=== PATIENT | female | born 1995 ===

== ENCOUNTER 2019-10-09 13:17 | Outpatient (CLI) | payer BC ==
--- NOTE | 2019-10-09 15:58 | ULT ---
OB ULTRASOUND: HISTORY: Size and dates. TECHNIQUE/FINDINGS: Real-time imaging of the pelvis shows a single viable intrauterine in a cephalic presentati on. Cervical canal length is 4.6 cm. The placenta is anterior in location without evidence of previa. Amniotic fluid is adequate for this stage of . Review of anatomy shows no abnormalities detected. Head, cerebellum, ventricles, four chamber h eart, stomach, kidneys, bladder, spine, upper and lower extremities and three vessel cord were all id entified. heart rate is 138 beats per minute. measurements are as follows: BPD: 4.3 cm (19 weeks 1 day) Head circumference: 15.9 cm (18 weeks 6 days) Abdominal circumference: 13.2 cm (18 weeks 5 days) Femur length: 3.2 cm (20 weeks 0 days) IMPRESSION: 1. Single viable intrauterine in a cephalic presentation. Overall measurements correspondin g to a gestational age of 19 weeks 2 days. Estimated date of delivery 03/02/2020. 2. Placenta which is anterior in location without evidence of previa. POS: [facility]
== END 2019-10-09 13:18 | disposition home or self-care (01) ==
LOC: BICULT 13:17
PROVIDERS: ATTEND Family Medicine
DX: Z34.82 Encounter for supervision of other normal pregnancy, second trimester (principal); Z3A.19 19 weeks gestation of pregnancy
CPT/HCPCS: 76805

== ENCOUNTER 2020-02-23 04:43 | Inpatient (IN) | payer MEDICAID, OTHER, SELFPAY ==
[2020-02-23] MEDS ORDERED: Lidocaine 1% (PF) 30 ML VIAL SC PRN (05:13)
[2020-02-23] MEDS ORDERED: Butorphanol Tartrate 1 MG/ML VIAL SLOW IVP PRN (05:13)
[2020-02-23] MEDS ORDERED: NS / Oxytocin 40 units/1000ml 1,000 ML IV PRN (05:13)
[2020-02-23] MEDS ORDERED: hydrALAZINE 20 MG/ML VIAL SLOW IVP PRN ×2 (05:13→09:39)
[2020-02-23] MEDS ORDERED: Ibuprofen 800 MG TAB PO PRN (05:13)
[2020-02-23] MEDS ORDERED: Ondansetron PF 4 MG/2 ML Vial IVP PRN ×2 (05:13→09:39)
[2020-02-23] MEDS ORDERED: HYDROcodone/Acetaminophen 5/325 mg Tablet PO PRN ×4 (05:13→09:39)
[2020-02-23] MEDS ORDERED: Promethazine HCl 25 MG/ML VIAL IM PRN (05:13)
[2020-02-23] MEDS: Lactated Ringer's 1,000 ML IV SCH ×2 (05:15→06:13)
--- NOTE | 2020-02-23 05:15 | PDOC.EVN ---
Event Note - Event Note Event Note: Direct admit to Evi Waters. Orders placed only
[2020-02-23 05:26] VITALS: BMI 26.4
[2020-02-23 05:27] LABS: Hemoglobin 14.2 g/dL (12.0-16.0); Mean Corpuscular HGB CONC 34.9 g/dL (32.0-36.0); Mean Corpuscular Volume 88.9 fL (78.0-98.0); Mean Platelet Volume 9.4 fL (7.4-10.4); Platelet Count 146 thou/uL (130-400); RBC Distribution Width 14.8 % (11.5-14.5); Red Blood Cell (RBC) Count 4.57 mill/uL (4.20-5.40); White Blood Cell (WBC) Count 14.4 thou/uL (4.8-10.8)
[2020-02-23] MEDS ORDERED: Penicillin G Potassium 5 MILL.UNITS in Sodium Chloride 0.9% 100 ML IVPB SCH (05:30)
[2020-02-23] MEDS ORDERED: Fentanyl 4 mcg/Bup 0.1% Cadd 100 ML ONE (05:30)
[2020-02-23] MEDS ORDERED: Fentanyl 100 MCG/2 ML VIAL ONE (05:39)
[2020-02-23 06:06] LABS: Syphilis Antibody Nonreactive (Nonreactive); Syphilis Antibody Index 0.03 S/CO (<1.00 Non-Reactive)
[2020-02-23 06:08] LABS: HBSAg Index 0.14 S/CO (0-0.99); HIV (1/2) Antibody/Antigen Non-Reactive (NonReactive); Hep B Surf Ag Non-Reactive S/CO (NonReactive)
[2020-02-23] MEDS ORDERED: Penicillin G 2.5 MILL.units 2.5 MILL.UNITS in Premix Bag 1 BAG IVPB SCH (09:00)
[2020-02-23] MEDS ORDERED: Lanolin Ointment 7 GM TUBE TOP PRN (09:39)
[2020-02-23] MEDS ORDERED: diphenhydrAMINE 25 MG CAP PO PRN (09:39)
[2020-02-23] MEDS ORDERED: Adacel (T-DAP) 0.5 ML SYRINGE IM ONE (09:39)
[2020-02-23] MEDS ORDERED: Bisacodyl 10 MG SUPP PR PRN (09:39)
[2020-02-23] MEDS ORDERED: Benzocaine-Menthol 82.5 ML CAN TOP PRN (09:39)
[2020-02-23] MEDS ORDERED: Milk Of Magnesia 30 ML UDCUP PO PRN (09:39)
[2020-02-23] MEDS ORDERED: NS / Oxytocin 40 units/1000ml 1,000 ML IV SCH (09:39)
[2020-02-23] MEDS ORDERED: Docusate Calcium (SURFAK) 240 MG CAP PO SCH (10:00)
[2020-02-23] MEDS ORDERED: Prenatal Vitamin 1 TAB PO SCH (10:00)
[2020-02-23] MEDS ORDERED: Ferrous Sulfate 325 MG TAB PO SCH (10:00)
[2020-02-23] MEDS: Ibuprofen 800 MG TAB PO SCH ×2 (13:16→20:59)
[2020-02-23] MEDS ORDERED: Bupivacaine/Epinephrine 0.25% 30 ML VIAL ONE (13:22)
[2020-02-23] MEDS: Ferrous Sulfate 325 MG TAB PO SCH (16:54)
[2020-02-23] MEDS: Docusate Calcium (SURFAK) 240 MG CAP PO SCH (20:59)
[2020-02-24] MEDS: Ibuprofen 800 MG TAB PO SCH (05:17)
[2020-02-24] MEDS: Docusate Calcium (SURFAK) 240 MG CAP PO SCH (07:55)
[2020-02-24] MEDS: Ferrous Sulfate 325 MG TAB PO SCH (07:57)
[2020-02-24 08:15] VITALS: BP 108/65; TEMP 98
[2020-02-24] MEDS ORDERED: Prenatal Vitamin 1 TAB PO SCH (09:00)
== END 2020-02-24 13:58 | disposition home or self-care (01) | DRG 807 ==
LOC: L&D/OP 04:43 → L&D 06:35 → 3SW 10:12
PROVIDERS: ADMIT Family Medicine; ATTEND Family Medicine
PROC: 10E0XZZ Delivery of Products of Conception, External Approach (ICD-10-PCS; principal; 2020-02-24)
DX: O80 Encounter for full-term uncomplicated delivery (principal); Z37.0 Single live birth; Z3A.39 39 weeks gestation of pregnancy
CPT/HCPCS: 36415; 51702; 85027; 86780; 86850; 86900; 86901; 87340; 87389; 99285; J3010